=== PATIENT | male | born 1985 | race Caucasian/White ===

== ENCOUNTER 2020-04-25 13:38 | Emergency (ER) | payer OTHER, MEDICAID ==
[2020-04-25] MEDS ORDERED: Ketorolac 60 MG/2 ML SDV IM ONE (13:46)
[2020-04-25] MEDS ORDERED: Cyclobenzaprine 10 MG Tab PO ONE (13:47)
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
== END 2020-04-25 14:49 | disposition home or self-care (01) ==
LOC: JP.ED 13:38
DX: S39.012A Strain of muscle, fascia and tendon of lower back, initial encounter (principal); Z88.7 Allergy status to serum and vaccine; V53.5XXA Driver of pick-up truck or van injured in collision with car, pick-up truck or van in traffic accident, initial encounter
CPT/HCPCS: 72100; 96372; 99283; A9270; J1885